=== PATIENT | male | born 1955 | race African-American/Black ===

== ENCOUNTER 2018-03-06 08:27 | Emergency (ER) | payer OTHER ==
[~2018-03-06] VITALS: Ht 185.4 cm; Wt 93.0 kg
[2018-03-06] MEDS ORDERED: BLOOD PRESSURE MED (08:41)
[2018-03-06 08:59] LABS: URINE BILIRUBIN NEGATIVE (Negative); URINE BLOOD 2+ (Negative); URINE CLARITY CLEAR; URINE COLOR YELLOW; URINE GLUCOSE-RANDOM NEGATIVE (Negative); URINE KETONES NEGATIVE (Negative); URINE LEUKOCYTES-REFLEX 2+ (Negative); URINE NITRITE-REFLEX NEGATIVE (Negative); URINE PROTEIN 2+ (Negative); URINE SPECIFIC GRAVITY >= 1.030 (1.005-1.030); URINE UROBILINOGEN 0.2 E.U./dl (0.2-1.0)
[2018-03-06 09:16] LABS: BACTERIA-REFLEX 1-9 Few /HPF (None Seen); CASTS None Seen /LPF (None Seen); CRYSTALS None Seen /LPF (None Seen); SQUAMOUS 0-3 Few /LPF (0-3); URINE WBC-REFLEX >25 Many /HPF (0-5)
[2018-03-06 09:41] LABS: CALCIUM 8.6 mg/dL (8.5-10.1); CREATININE 1.3 mg/dL (0.6-1.3); POTASSIUM 3.7 mmol/L (3.5-5.1)
[2018-03-06] MEDS ORDERED: BACTRIM DS TAB1 EACH PO (09:54)
[2018-03-06] MEDS ORDERED: PHENAZOPYRIDIN200 M2 PO (09:56)
[2018-03-06 10:04] VITALS: BP 198/120
== END 2018-03-06 10:07 | disposition home or self-care (01) ==
LOC: M.ERS 08:27
PROVIDERS: Emergency Medicine Emergency Medical Services
DX: N39.0 Urinary tract infection, site not specified (principal); I10 Essential (primary) hypertension